=== PATIENT | female | born 1975 | race Caucasian/White ===

== ENCOUNTER → 2016-07-09 | Outpatient (CLI) | payer BC ==
[~2016-07-09] MED LIST: CALC500C3; MTRUNK PO; PRENTAB26 PO; TYLUNK PO
--- NOTE | 2016-07-09 15:14 | MAMMOGRAPHY REPORT ---
UNILATERAL LEFT DIGITAL DIAGNOSTIC MAMMOGRAM TOMOSYNTHESIS WITH CAD AND TARGETED LEFT ULTRASOUND: CLINICAL HISTORY: 40 year-old woman presents for follow-up of a nodular asymmetry in the left axilla ry tail/axilla. TECHNIQUE: Left breast tomosynthesis in addition to standard 2D mammography was performed. Current baldemar ramirez was also evaluated with a Computer Aided Detection (CAD) system. COMPARISON: Comparison is made to exams dated: 01/09/2016 ultrasound and 01/09/2016 mammogram - [facility]. BREAST COMPOSITION: The tissue of the left breast is extremely dense, which lowers the sensitivity of mammography. FINDINGS: A triangular skin palpable marker overlies the left axilla denoting the tender palpable nir mp pointed out by the patient. The previously observed 2.5 cm rounded/nodular asymmetry in the far superior axillary region on the left MLO view is less prominent. Currently there is no evidence of a suspicious mass or architectural distortion. Numerous morphologically normal lymph nodes currentl y project over the superior pectoralis muscle on the MLO view. No new suspicious mass, architectura l distortion or cluster of microcalcifications is seen throughout the visualized left breast. Targeted ultrasound was performed throughout the left axilla and in an area of lump pointed out by t he patient within the left axillary tail. Accessory breast tissue is again seen in the area of conc [place] with several morphologically normal lymph nodes. There is no evidence of a suspicious mass or s uspicious lymphadenopathy. IMPRESSION: ACR BI-RADS CATEGORY 2: BENIGN, TARGETED ULTRASOUND ACR BI-RADS CATEGORY 2: BENIGN Less prominent asymmetry in the left axillary tail/axilla which most likely represents normal access ory breast tissue. There is no mammographic or targeted sonographic evidence of malignancy. Return to annual mammogram screening schedule is recommended. The patient has been verbally notified of th e results. Approximately 10% of breast cancers are not detected with mammography. A negative mammographic repor t should not delay biopsy if a clinically suggestive mass is present. Tatum Iglesias M.D. ay/:07/09/2016 12:29:11 Jr. Systems Administrator: Lynette CHRISTIAN(Margot)(Naseem), [facility] letter sent: Normal 1/2 BI-RADS Code: ACR BI-RADS Category 2: Benign Ultrasound BI-RADS: ACR BI-RADS Category 2: Benign
== END | disposition home or self-care (01) ==
LOC: C.MAMM 11:06
PROVIDERS: ATTEND Nurse Practitioner Family
DX: N64.89 Other specified disorders of breast (principal)

== ENCOUNTER → 2017-01-09 | Outpatient (CLI) | payer BC ==
--- NOTE | 2017-01-10 13:58 | MAMMOGRAPHY REPORT ---
BILATERAL DIGITAL SCREENING MAMMOGRAM TOMOSYNTHESIS WITH CAD: 01/09/2017 CLINICAL HISTORY: Routine screening. Patient has no complaints. TECHNIQUE: Breast tomosynthesis in addition to standard 2D mammography was performed. Current study was also evaluated with a Computer Aided Detection (CAD) system. COMPARISON: Comparison is made to exams dated: 07/09/2016 ultrasound, 07/09/2016 mammogram, 01/09/2016 ultrasound, and 01/09/2016 mammogram - [facility]. BREAST COMPOSITION: The tissue of both breasts is extremely dense, which lowers the sensitivity of m ammography. FINDINGS: No suspicious masses, calcifications, or areas of architectural distortion are noted in ei ther breast. There has been no significant interval change compared to prior exams. IMPRESSION: ACR BI-RADS CATEGORY 1: NEGATIVE There is no mammographic evidence of malignancy. A 1 year screening mammogram is recommended. The pa tient will receive written notification of the results. Approximately 10% of breast cancers are not detected with mammography. A negative mammographic report should not delay biopsy if a clinically suggestive mass is present. Margaret Fountain M.D. ah/:01/09/2017 16:35:11 Warp Picker: Kizzy CHRISTIAN(R)(M), [facility] letter sent: Normal 1/2 BI-RADS Code: ACR BI-RADS Category 1: Negative
== END | disposition home or self-care (01) ==
LOC: C.MAMM 07:09
PROVIDERS: ATTEND Nurse Practitioner Family
DX: Z12.31 Encounter for screening mammogram for malignant neoplasm of breast (principal)

== ENCOUNTER → 2017-01-19 | Outpatient (CLI) | payer BC ==
--- NOTE | 2017-01-19 12:24 | DIAGNOSTIC IMAGING REPORT ---
SI JOINTS 3 OR MORE VIEWS HISTORY: 41 years-old Female LEFT SIDED LOW BACK PAIN acute on chronic left sided low back pain. No reported trauma. COMPARISON: None available TECHNIQUE: 3 views of the sacroiliac joints. FINDINGS: There is no acute fracture or dislocation. Minimal degenerative changes of the bilateral sacroiliac joints are seen without gross of arthropathy. Mild pubic symphysis degenerative changes are also appreciated. Soft tissues are unremarkable. Negative for opaque foreign body. IMPRESSION: 1. No acute fracture or dislocation. 2. Minimal degenerative changes of the sacroiliac joints without erosive arthropathy. The above report was generated using voice recognition software. It may contain grammatical, syntax or spelling errors. Electronically signed by: Navin Whelan M.D. 01/19/2017 12:23 PM Dictated Date/Time: 01/19/2017 12:22 PM
== END | disposition home or self-care (01) ==
LOC: C.RAD 11:55
PROVIDERS: ATTEND Nurse Practitioner Family
DX: M54.5 Low back pain (principal)